=== PATIENT | female | born 1985 | race Caucasian/White ===

== ENCOUNTER 2024-10-02 09:20 | Emergency (ER) | payer SELFPAY ==
[2024-10-02 09:21] VITALS: BP 136/92; PULSE 117; RESP 18; TEMP 36.4; O2SAT 99; BMI 29.6
[2024-10-02 09:55] LABS: Absolute Neutrophil Count 2.2 X10^3/uL (2.0-7.7); Basophil# 0.05 X10^3/uL; Basophil% 1.2 % (0-1); Eosinophil# 0.04 X10^3/uL; Eosinophils% 0.9 % (0-5); Hematocrit 37.8 % (37-47); Hemoglobin 12.3 g/dL (12.0-15.0); Lymphocyte % 34.7 % (19-41); Mean Corp Hgb Conc 32.5 g/dL (32-36); Mean Corpuscular Hgb 29.4 pg (27.0-32.0); Mean Corpuscular Volume 90.2 fL (81-99); Mean Platelet Vol. 9.1 fl (6.2-12.0); Monocyte# 0.51 X10^3/uL; Monocyte% 11.8 % (0-10); NRBC Flagged by Analyzer 0 % (0-5); Neutrophil # 2.21 X10^3/uL (2.7-7.7); Neutrophil % 51.2 % (47-70); POSITIVE MORPHOLOGY YES; Platelet Count 313 K/mm3 (150-450); RBC Distribution Width CV 13.1 % (11.6-14.6); RBC Distribution Width SD 43.2 fl (35.1-43.9); Red Blood Count 4.19 M/mm3 (4.2-5.4); White Blood Count 4.3 K/mm3 (4.4-11.0)
[2024-10-02 10:05] LABS: Differential Indicated SCAN CRITERIA MET
--- NOTE | 2024-10-02 10:10 | RAD_ITS ---
PROCEDURE: CHEST PA AND LATERAL 10/02/2024 REASON FOR EXAM: PALPITATIONS TECHNIQUE: CHEST PA AND LATERAL COMPARISON: None provided. RAD/Chest PA and Lateral IMPRESSION: Left upper quadrant abdominal surgical clips are seen. Lungs appear clear. No pleural effusion or pneumothorax is noted. No evidence of pulmonary edema. The cardiomediastinal silhouette is within the normal range; no evidence of car diomegaly. Mild degenerative changes of the visualized spine are also noted. No evidence of acute cardiopulmonary disease. Reading Location: [place] [id number]
[2024-10-02] MEDS: 0.9% Normal Saline (1000mL) 1,000 ML 999 ML IV (10:15)
[2024-10-02 10:21] VITALS: BP 109/88; PULSE 71; RESP 13; O2SAT 100
[2024-10-02 10:23] LABS: Anion Gap 10 (5-15); BUN 13 mg/dL (4-19); BUN/Creat Ratio 14.5 RATIO (10-20); Carbon Dioxide 23.9 mmol/L (21.0-32.0); Chloride 105 mmol/L (98-108); Creatinine, Serum 0.89 mg/dL (0.70-1.20); EST Glomerular Filtration Rate 85 (>60); Glucose 101 mg/dL (70-99); Sodium Level 139 mmol/L (133-145)
[2024-10-02 10:25] LABS: Free T3 2.6 pg/mL (2.18-3.98); Troponin T High Sensitivity < 6 ng/L (<=14)
[2024-10-02 10:35] LABS: Atypical Lymphocyte 1+ %; Platelet Estimate A (ADEQ)
--- NOTE | 2024-10-02 10:57 | EX.ED.DYSGE1 ---
HPI History of Present Illness Chief Complaint: Palpitations Narrative Narrative: Patient is a 31-year-old female with no known significant past medical history who presented to the emergency department with chief complaint of concern for new onset A-fib. Patient states that for the past several months she had been having episodes where she had been feeling off and notes that yesterday around 5 PM she states that she was not feeling right. States that this persisted into today they hooked her up to EKG while at the local fire department and in the machine read A-fib with rapid ventricular response therefore they advised her to come to the emergency department to be evaluated. Patient states that to her knowledge this never happened before. She states that she has on control but denies any history of blood clots denies any recent travels. PFSH PFSH Home Medications ?Medication ?Instructions ?Recorded ?Last Taken ?Type drospirenone 3 mg-ethinyl 1 tab PO DAILY 10/02/24 10/01/24 History estradiol 0.02 mg tablet (Vestura (28)) Allergy/AdvReac Type Severity Reaction Status Date / Time No Known Allergies Allergy Verified 10/02/24 09:23 Social History Smoking Status: Unknown if ever smoked ROS ROS ED ROS Narrative Constitutional: Denies headache, lightness, dizziness, fevers, chills Eyes: Denies change in vision double vision blurry vision Cardiovascular: Denies chest pain or palpitations Respiratory: Denies coughing wheezing shortness of breath Abdomen: Denies abdominal pain nausea vomit diarrhea : Denies urinary symptoms Neurological: Denies any numbness, weakness, tingling Musculoskeletal: Denies back pain Skin: Denies any rashes or lesions EXAM Physical Exam Narrative Exam Narrative: General: Patient was lying in bed rest comfortably did not appear to be acute distress Head: Atraumatic, normocephalic Eyes: PERRL bilaterally, EOMI by, no conjunctival injection noted Neck: Soft, supple, trachea midline Cardiovascular: Regular rate and rhythm no murmurs gallops rubs noted Respiratory: Clear to auscultation bilaterally no rales rhonchi or wheezes noted Abdomen: Soft, nondistended, tender to palpation Extremities: Radial pulses +2/4 in the bilateral extremities, no pedal edema on exam, +5/5 strength noted in the bilateral upper and lower extremities Neurological: Patient following commands that she was at [facility] the year is 2024 Skin: Warm, dry, intact no rashes or lesions noted Const Vital Signs: 10/02/24 09:21 10/02/24 09:30 10/02/24 09:58 Temperature 97.6 F L Temperature Source Temporal Pulse Rate 117 H Respiratory Rate 18 Respiratory Effort Normal Non-Labored Blood Pressure 136/92 H Blood Pressure Mean 106 Pulse Ox 99 Oxygen Delivery Method Room Air Room Air 10/02/24 10:21 10/02/24 11:00 10/02/24 12:00 Temperature Temperature Source Pulse Rate 71 65 77 Respiratory Rate 13 19 H 16 Respiratory Effort Blood Pressure 109/88 H 114/81 H 106/77 Blood Pressure Mean 95 92 86 Pulse Ox 100 100 100 Oxygen Delivery Method Room Air Room Air Room Air 10/02/24 13:00 Temperature Temperature Source Pulse Rate 69 Respiratory Rate 18 Respiratory Effort Blood Pressure 106/69 Blood Pressure Mean 81 Pulse Ox 100 Oxygen Delivery Method Room Air MDM MDM MDM Narrative Medical decision making narrative: Patient is a 31-year-old female who presented to the emergency department the chief complaint of concern for new onset A-fib. On the differential diagnosis includes but not limited to new onset atrial fibrillation, atrial flutter, PACs, PVCs, electrolyte abnormality, PE. Once workup is obtained and reviewed she will be reevaluated. I reviewed the twelve-lead that was done at the fire department and this is not atrial fibrillation despite the computer reading this showed sinus rhythm. Patient's CBC was reviewed showed a white blood count of 4.3, hemoglobin stable 12.3, platelet count normal at 313. Patient sodium was low normal at 139, potassium normal at 4, creatinine was normal at 0.89. Patient's troponin was less than 6 with a delta troponin obtained at less than 6, EKG was reviewed and showed sinus rhythm with PACs noted with a rate of 99 bpm with a QTc of 438. Patient's TSH normal at 1.35 with a normal free T4 and free T3 at 1 and 2.6 respectively. Patient's chest x-ray reviewed by myself and by radiology showed no acute cardiopulmonary processes. Given the patient's largely unremarkable workup she is on control will add a D-dimer on. Patient's D-dimer was elevated therefore CTA chest was added on. Patient CT of the chest reviewed showed no acute evidence of pulmonary embolism no other acute findings noted. Discussed this result with patient she would like to go home at this point time. We will place her on a Holter monitor at this point in time. She is advised to follow-up with a primary care physician which she was referred to as well as a full charge bookkeeper which she was referred to. She is encouraged to return with any other concerns or worsening symptoms. Significant other bedside is also agreeable this plan. Lab Data Labs: Laboratory Results - last 24 hr 10/02/24 10/02/24 09:45 11:45 WBC 4.3 L RBC 4.19 L Hgb 12.3 Hct 37.8 MCV 90.2 MCH 29.4 MCHC 32.5 RDW Std Deviation 43.2 RDW Coeff of Bakari 13.1 Plt Count 313 MPV 9.1 Immature Gran % (Auto) 0.200 Neut % (Auto) 51.2 Lymph % (Auto) 34.7 [place] % (Auto) 11.8 H Eos % (Auto) 0.9 Baso % (Auto) 1.2 H Absolute Neuts (auto) 2.2 Absolute Lymphs (auto) 1.50 Nucleated RBC % 0 Atypical Lymphocytes 1+ Platelet Estimate A D-Dimer Quant (PE/DVT) 2.74 H* Sodium 139 Potassium 4.0 Chloride 105 Carbon Dioxide 23.9 Anion Gap 10 BUN 13 Creatinine 0.89 Estim Creat Clear Calc 86.80 Est GFR (MDRD) Non-Af 85 BUN/Creatinine Ratio 14.5 Glucose 101 H Calcium 9.0 Troponin T High Sens < 6 Troponin T Hi Sens 2 Hr < 6 TSH 1.350 Free T4 1.00 Free T3 pg/dL 2.6 Radiography Diagnostic Testing: Clinical Impression(s) from Imaging Studies Chest X-Ray 10/02/24 10:10 IMPRESSION: Left upper quadrant abdominal surgical clips are seen. Lungs appear clear. No pleural effusion or pneumothorax is noted. No evidence of pulmonary edema. The cardiomediastinal silhouette is within the normal range; no evidence of cardiomegaly. Mild degenerative changes of the visualized spine are also noted. No evidence of acute cardiopulmonary disease. Reading Location: [facility] Chest CTA 10/02/24 11:17 IMPRESSION: NORMAL CHEST CTA. NO EVIDENCE OF ACUTE PULMONARY EMBOLISM. Reading Location: [id number] Discharge Plan Triage Chief Complaint: Palpitations ED Provider: Rodrigue Rico Dx/Rx/DC Orders Clinical Impression: Palpitations Prescriptions: No Action drospirenone-ethinyl estradiol [Vestura (28)] 3-0.02 mg tablet 1 tab PO DAILY Patient Comments: PT TAKES AT BEDTIME Primary Care Provider: Care Physician,Juju Primary Referrals: Care Physician,Juju Primary [Primary Care Provider] - Diomedes Miller MD [Med Staff - Front Desk Administrator] - Quinten Whiting MD [Med Staff - Active Staff] - Activity Restrictions/Additional Instructions: Your blood work did not show any acute findings today, your EKG did not show any evidence of atrial fibrillation and showed sinus rhythm with PACs. Follow-up with the primary care doctor that you referred to as well as the full charge bookkeeper. Return with worsening symptoms or concerns. Your CT of your chest did not show any evidence of blood clots. Print Language: Czech Disposition Disposition: Home, Self Care
[2024-10-02 11:00] VITALS: BP 114/81; PULSE 65; RESP 19; O2SAT 100
[2024-10-02 11:11] LABS: D-Dimer Quantitative (DVT/PE) 2.74 FEU/ug/m (0.27-0.49)
--- NOTE | 2024-10-02 11:17 | CT_ITS ---
PROCEDURE: CTA CHEST W/WO CONTRAST 10/02/2024 REASON FOR EXAM: ELEVATED DIMER TECHNIQUE: CTA CHEST W/WO CONTRAST Multiplanar Sagittal and Coronal images were obtained. One or more dose reduction techniques were used (e.g., Automated exposure control, adjustment of the mA and/or kV according to patient size, use of iterative reconstruction technique). CONTRAST: Isovue 370 VOLUME: 100 mL RADIATION DOSE SUMMARY: CTDlvol: 9 mGy DLP: 311.12 mGycm COMPARISON: Prior chest radiograph done earlier in the day. FINDINGS: Hardware: None Lymph nodes: None Heart: Unremarkable Thoracic Aorta: Unremarkable Pulmonary Vessels: No evidence of pulmonary embolism. Lungs and Airways: Unremarkable Pleura: Unremarkable Upper Abdomen: Unremarkable Bones: Unremarkable CT/CTA Chest W/WO Contrast IMPRESSION: NORMAL CHEST CTA. NO EVIDENCE OF ACUTE PULMONARY EMBOLISM. Reading Location: [id number]
[2024-10-02 12:00] VITALS: BP 106/77; PULSE 77; RESP 16; O2SAT 100
[2024-10-02 12:43] LABS: Troponin T High Sens 2 HR < 6 ng/L (<=14)
[2024-10-02 13:00] VITALS: BP 106/69; PULSE 69; RESP 18; O2SAT 100
[2024-10-02 13:33] VITALS: BP 106/69; PULSE 80; RESP 12; TEMP 36.6; O2SAT 100
== END 2024-10-02 14:05 | disposition home or self-care (01) ==
PROVIDERS: Emergency Provider Emergency Medicine; Visit Provider Emergency Medicine
DX: R00.2 Palpitations (principal)
CPT/HCPCS: 71046; 71275; 80048; 84439; 84443; 84481; 84484; 85025; 85379; 93005; 96360; 96361; 99284; Q9967; A4216

== ENCOUNTER → 2024-10-02 | Outpatient (CLI) | payer SELFPAY | END | disposition home or self-care (01) | LOC: PSN 13:45 | PROVIDERS: Visit Provider Emergency Medicine | DX: R00.2 Palpitations (principal) | CPT/HCPCS: 93225; 93226 ==